=== PATIENT | female | born 1950 | race Caucasian/White ===

== ENCOUNTER 2021-12-18 10:18 | Emergency (ER) | payer MEDICARE ==
[~2021-12-18 10:18] MED LIST: LOVASTATIN20 MG PO; METFORMIN HCL500 MG PO; PERCOCET 5-3251 EACH PO; PROZAC20 MG PO
[2021-12-18 11:34] LABS: BILIRUBIN NEGATIVE (NEGATIVE); BLOOD TRACE-INTACT Ery/uL (NEGATIVE); CLARITY CLEAR (CLEAR); COLOR YELLOW (YELLOW); GLUCOSE (U) 3+ mg/dL (NORMAL); LEUKOCYTES 1+ Leu/uL (NEGATIVE); NITRITE NEGATIVE (NEGATIVE); PROTEIN NEGATIVE (NEGATIVE); SPECIFIC GRAVITY 1.015 (1.001-1.030); UROBILINOGEN 0.2 mg/dL (0.2-1.0)
[2021-12-18 11:44] LABS: URINARY RBC RARE; URINARY WBC RARE
[2021-12-18 12:01] LABS: BASOPHIL 0.9 % (0-2); EOSINOPHIL 0.8 % (0-7); HCT 42.7 % (37.0-47.0); HGB 13.7 g/dl (12.5-16.0); LYMPHOCYTE 23.7 % (15-48); MCH 29.5 pg (25.0-31.0); MCHC 32.1 g/dL (32.0-36.0); MONOCYTE 6.7 % (0-12); MPV 9.4 fL (6.0-9.5); NEUTROPHIL 67.6 % (41-80); NRBC 0; PLT 210 K/uL (150-400); RBC 4.64 M/uL (4.20-5.40); RDW 13.4 % (11.5-14.0); WBC 8.8 K/uL (4.0-10.5)
[2021-12-18 12:12] LABS: BUN/CREAT RATIO (CALC) 20.5 RATIO; CREATININE 0.78 mg/dL (0.51-0.95); POTASSIUM 4.1 mmol/L (3.5-5.1)
[2021-12-18] MEDS ORDERED: NORCO 5-325 TA1 EACH PO (14:46)
== END 2021-12-18 14:59 | disposition home or self-care (01) ==
LOC: FER 10:18
PROVIDERS: Emergency Medicine
DX: M47.26 Other spondylosis with radiculopathy, lumbar region (principal); M48.061 Spinal stenosis, lumbar region without neurogenic claudication; M51.16 Intervertebral disc disorders with radiculopathy, lumbar region; E11.9 Type 2 diabetes mellitus without complications; E78.5 Hyperlipidemia, unspecified; Z79.84 Long term (current) use of oral hypoglycemic drugs; Z79.899 Other long term (current) drug therapy; Z88.8 Allergy status to other drugs, medicaments and biological substances
CPT/HCPCS: 36415; 72131; 80048; 81001; 85025; J2270; J2405; J2930

== ENCOUNTER → 2022-01-30 | Day surgery (SDC) | payer MEDICARE ==
[~2022-01-30] VITALS: Ht 154.9 cm; Wt 59.0 kg
[~2022-01-30] MED LIST changes: +AMARYL4 MG PO; +CRESTOR5 M1 PO; +JANUVIA PO; -LOVASTATIN20 MG PO; +NORCO 5-325 TA1 EACH PO
[2022-01-30 07:49] LABS: HCT 41.6 % (37.0-47.0); HGB 13.2 g/dl (12.5-16.0); MCH 29.3 pg (25.0-31.0); MCHC 31.7 g/dL (32.0-36.0); MCV 92.4 fL (78.0-100.0); MPV 9.4 fL (6.0-9.5); RBC 4.5 M/uL (4.20-5.40); RDW 13.9 % (11.5-14.0); WBC 7.9 K/uL (4.0-10.5)
[2022-01-30 08:18] LABS: ALBUMIN 4.1 g/dL (3.4-5.0); BILIRUBIN - TOTAL 0.5 mg/dL (0.2-1.0); BUN/CREAT RATIO (CALC) 15.7 RATIO; CREATININE 0.83 mg/dL (0.51-0.95); GLOBULIN (CALCULATION) 3.6 g/dL; POTASSIUM 3.5 mmol/L (3.5-5.1); TOTAL PROTEIN 7.7 g/dL (6.4-8.2)
== END | disposition home or self-care (01) ==
LOC: FAS 07:27
PROVIDERS: Surgery
DX: Z12.11 Encounter for screening for malignant neoplasm of colon (principal); K58.9 Irritable bowel syndrome, unspecified; Q43.8 Other specified congenital malformations of intestine; E11.9 Type 2 diabetes mellitus without complications; M19.90 Unspecified osteoarthritis, unspecified site; G47.30 Sleep apnea, unspecified; E78.5 Hyperlipidemia, unspecified; Z80.0 Family history of malignant neoplasm of digestive organs; Z80.3 Family history of malignant neoplasm of breast; Z79.84 Long term (current) use of oral hypoglycemic drugs; Z79.899 Other long term (current) drug therapy; Z88.8 Allergy status to other drugs, medicaments and biological substances
CPT/HCPCS: 36415; 80053; J1610; J2250; J2704; J7120